=== PATIENT | female | born 1995 | race Caucasian/White ===

== ENCOUNTER 2016-05-28 11:36 | Emergency (ER) | payer OTHER ==
--- NOTE | 2016-05-28 13:19 | ED CLINICAL REPORT ---
Clinical Report - Physicians/Mid Levels [facility] [address] [place] [address] 05/28/2016 11:37 Patient: MARVA CARCAMO Time Seen: 12:17 May 28 2016. Arrived- By private vehicle. Historian- patient. CPT: ER phys charges level 3 plus (#006339). Abscess complicated I&D (#[id number]). HISTORY OF PRESENT ILLNESS Chief Complaint: LESION. 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 It is described as painful. It has been located on the left forearm. A cause has been identified (IVDA heroin). Similar symptoms previously: Recent medical care: Not recently seen/assessed. REVIEW OF SYSTEMS The patient has had fever. No chills, sore throat, cough, difficulty breathing or hoarseness. No enlarged lymph nodes, headache, chest pain, abdominal pain or nausea. No diarrhea, difficulty with urination or joint pain. All systems otherwise negative, except as recorded above. PAST HISTORY Abscess Check. Abscess. Fever. Cellulitis. Pneumonia. Febrile Illness. Ear Infection. Strep Throat. Abrasion(s). Tetanus Status. Immunizations. --11:55 Janae Magana R.N. ADDITIONAL SURGERIES: I & D of Abcesses. Medications: None. Allergies: No Known Drug Allergy. SOCIAL HISTORY Never smoker. History of drug use: heroin, methamphetamines. ADDITIONAL NOTES The nursing notes have been reviewed. PHYSICAL EXAM Vital Signs: 05/28/2016 11:50 BP: 113/80. HR: 109. RR: 18. O2 saturation: 100%. Temp: 98.4 F. Appearance: Alert. Patient in mild distress. Eyes: Pupils equal, round and reactive to light. Conjunctivae and eyelids normal. ENT: Ears normal. Nose normal. Pharynx normal. Neck: Neck supple. CVS: Normal heart rate and rhythm. Heart sounds normal. No cardiac murmur. Respiratory: No respiratory distress. Breath sounds normal. Chest nontender. Abdomen: Nontender. Skin: Single medium abscess with fluctuance, pointing and cellulitis to left forearm. Extremities: (see above). Neuro: Oriented X 3. No motor deficit. No sensory deficit. LABS, X-RAYS, AND EKG Laboratory Tests: Culture, Wound Deep: (AINSLEY: 05/28/2016 13:30) ( MsgRcvd 05/29/2016 10:28) IP SPECIMEN DESCRIPTION: SWAB Test Result Flag Units (Reference) GRAM STAIN, WOUND, DEEP GRAM POSITIVE COCCI: MODERATE WHITE BLOOD CELLS: MODERATE CULTURE, WOUND DEEP, AEROBIC DATE: 05/29/16 PRELIM REPORT: PRELIMINARY REPORT #1 -- STAAUR GROWTH: HEAVY GROWTH ID AND SENS TO FOLLOW: SENSITIVITY TO FOLLOW . PROGRESS AND PROCEDURES Incision & Drainage of Abscess: The risks of the procedure, benefits and alternatives were explained. Consent was obtained. Local anesthesia provided using 2% lidocaine with bicarb. Skin cleansed with Betadine. The abscess was incised with a #11 surgical blade. A large amount of pus was drained. Cavity was irrigated with saline and packed with gauze. Sample obtained for cultures and gram stain. A dressing was applied. Estimated blood loss: 2 mL. Patient/family counseled. Disposition: Discharged. Condition: stable and improved. CLINICAL IMPRESSION Single deep abscess to the left upper extremity with incision and drainage. INSTRUCTIONS Protect wound and keep wound area clean. Leave dressing in place until seen in follow-up. Keep wounds dry. Warnings: Further evaluation is necessary. GENERAL WARNINGS: Return or contact your physician immediately if your condition worsens or changes unexpectedly, if not improving as expected, or if other problems arise. Prescription Medications: Bactrim DS 800 mg / 160 mg: Take 1 tablet orally every 12 hours for 7 days. Dispense fourteen (14). No refills. Substitution is permissible. OTC Medications: Acetaminophen (available over the counter): take according to label instructions. Follow-up: Follow up with your doctor in two days. Call for an appointment. Understanding of the discharge instructions verbalized by patient. Follow-up with: [facility], , , [address], , [place], [id number] Follow up in two days. Call for the next available appointment. (Electronically signed by George Vincent MD 05/29/2016 13:13)
--- NOTE | 2016-05-28 13:19 | ED NURSING NOTES ---
Clinical Report - Nurs[facility] [address] [place] [address] 05/28/2016 11:37 Patient: MARVA CARCAMO TRIAGE Triage time 11:50 May 28 2016. Acuity: LEVEL 4. Chief Complaint: BOIL and TENDER AREA. Alert. No acute distress. --11:55 Janae Magana R.N. 11:50 05/28/16. BP: 113/80. HR: 109. RR: 18. O2 saturation: 100%. Temp: 98.4 F. Pain level now 5/10. --11:55 Janae Magana R.N. Weight: 58.9 kg stated. Height/Length: 60 inches Per Patient. BMI: 25.4. Growth Chart Percentile: Weight: 53.3%. Height/Length: 4.6%. --11:50 Janae Magana R.N. Medications None. --11:55 Janae Magana R.N. Allergies No Known Drug Allergy. --11:54 Janae Magana R.N. Medication/allergy information source: the patient. --11:55 Janae Magana R.N. History Arrived by private vehicle. Historian: patient. Primary physician (was Iliana Zavala). ( Left Forearm Infection from shooting Heroin.). Location - left forearm. Onset. (3 days). 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 (not today). PAST MEDICAL HX: Immunizations: up-to-date. Last normal menstrual period was 2 weeks ago. No contraception. Denies current . SOCIAL HX: Never smoker. History of IV drug use: heroin, methamphetamines. No alcohol use. No infectious disease exposure. FALL RISK ASSESSMENT: Fall risk assessment completed. No fall risk identified. NUTRITIONAL RISK ASSESSMENT: The nutritional risk assessment revealed no deficiencies. FUNCTIONAL ASSESSMENT: Functional assessment: no impairments noted. LEARNING NEEDS ASSESSMENT: The learning needs assessment revealed no barriers. SKIN INTEGRITY ASSESSMENT: Skin integrity risk assessment completed. No skin integrity risk identified. --11:55 Janae Magana R.N. PROBLEMS: Abscess Check. Abscess. Fever. Cellulitis. Pneumonia. Febrile Illness. Ear Infection. Strep Throat. Abrasion(s). Tetanus Status. Immunizations. --11:55 Janae Magana R.N. ADDITIONAL SURGERIES: I & D of Abcesses. --11:55 Janae Magana R.N. Interventions ID band on patient. To room. --11:55 Janae Magana R.N. PHYSICAL ASSESSMENT Ambulatory to room. GENERAL / NEURO / PSYCH: The patient does not appear to be in acute distress. Oriented X 4. CVS: Capillary refill less than 2 seconds. SKIN: Single wound on the left forearm- raised soft abcess. Skin tenderness present. --12:11 Janae Magana R.N. NURSING PROGRESS NOTES Patient ready for evaluation- ED physician notified. --11:56 Janae Magana R.N. 13:25 05/28/16. Applied clean bulky dressing consisting of 4x4 gauze. Secured with kerlix. --13:41 Charley Che 13:32 05/28/16. Patient ID band checked for patient name and birthdate: patient confirmed. Wound to left upper arm swabbed for culture; collected by doctor. Specimen labeled in the presence of the patient. --13:42 Charley Che. DISPOSITION / DISCHARGE 13:36 05/28/16. Departure time: 13:36 May 28 2016. Condition at departure: improved. The goals identified in the patient's plan of care were met. No learning barriers present. Discharge instructions provided and reviewed with the patient. Reviewed warnings (Patient verbalized awareness of warning s/sx listed in dc paperwork.). Reviewed medication(s). Prescription(s) given to the patient (Bactrim, Tylenol). Treatments reviewed. Reviewed referral to a primary care physician for followup. Patient verbalized understanding. Written instructions provided in [place]. The patient was discharged by the physician. She was discharged home and accompanied by junior high school teacher. She left the Emergency Department ambulatory and via private vehicle. Skinner Pelts driving. FALL RISK ASSESSMENT: Fall risk assessment completed. No fall risk identified. --13:36 Charley Che 13:35 05/28/16. BP: 127/82. HR: 105. RR: 15. O2 saturation: 100% on room air. Temp: 98.3 F. Pain level now: 06/27. --13:36 Charley Che. Locked/Released at 05/28/2016 13:57 by Charley Che,
--- NOTE | 2016-05-28 13:19 | ED NURSING NOTES ---
Clinical Report - Nurses [facility] [address] [place] [address] 05/28/2016 11:37 Patient: MARVA CARCAMO TRIAGE Triage time 11:50 May 28 2016. Acuity: LEVEL 4. Chief Complaint: BOIL and TENDER AREA. Alert. No acute distress. --11:55 Janae Magana R.N. 11:50 05/28/16. BP: 113/80. HR: 109. RR: 18. O2 saturation: 100%. Temp: 98.4 F. Pain level now 5/10. --11:55 Janae Magana R.N. Weight: 58.9 kg stated. Height/Length: 60 inches Per Patient. BMI: 25.4. Growth Chart Percentile: Weight: 53.3%. Height/Length: 4.6%. --11:50 Janae Magana R.N. Medications None. --11:55 Janae Magana R.N. Allergies No Known Drug Allergy. --11:54 Janae Magana R.N. Medication/allergy information source: the patient. --11:55 Janae Magana R.N. History Arrived by private vehicle. Historian: patient. Primary physician (was Iliana Zavala). ( Left Forearm Infection from shooting Heroin.). Location - left forearm. Onset. (3 days). 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 (not today). PAST MEDICAL HX: Immunizations: up-to-date. Last normal menstrual period was 2 weeks ago. No contraception. Denies current . SOCIAL HX: Never smoker. History of IV drug use: heroin, methamphetamines. No alcohol use. No infectious disease exposure. FALL RISK ASSESSMENT: Fall risk assessment completed. No fall risk identified. NUTRITIONAL RISK ASSESSMENT: The nutritional risk assessment revealed no deficiencies. FUNCTIONAL ASSESSMENT: Functional assessment: no impairments noted. LEARNING NEEDS ASSESSMENT: The learning needs assessment revealed no barriers. SKIN INTEGRITY ASSESSMENT: Skin integrity risk assessment completed. No skin integrity risk identified. --11:55 Janae Magana R.N. PROBLEMS: Abscess Check. Abscess. Fever. Cellulitis. Pneumonia. Febrile Illness. Ear Infection. Strep Throat. Abrasion(s). Tetanus Status. Immunizations. --11:55 Janae Magana R.N. ADDITIONAL SURGERIES: I & D of Abcesses. --11:55 Janae Magana R.N. Interventions ID band on patient. To room. --11:55 Janae Magana R.N. PHYSICAL ASSESSMENT Ambulatory to room. GENERAL / NEURO / PSYCH: The patient does not appear to be in acute distress. Oriented X 4. CVS: Capillary refill less than 2 seconds. SKIN: Single wound on the left forearm- raised soft abcess. Skin tenderness present. --12:11 Janae Magana R.N. NURSING PROGRESS NOTES Patient ready for evaluation- ED physician notified. --11:56 Janae Magana R.N. 13:25 05/28/16. Applied clean bulky dressing consisting of 4x4 gauze. Secured with kerlix. --13:41 Charley Che 13:32 05/28/16. Patient ID band checked for patient name and birthdate: patient confirmed. Wound to left upper arm swabbed for culture; collected by doctor. Specimen labeled in the presence of the patient. --13:42 Charley Che. DISPOSITION / DISCHARGE 13:36 05/28/16. Departure time: 13:36 May 28 2016. Condition at departure: improved. The goals identified in the patient's plan of care were met. No learning barriers present. Discharge instructions provided and reviewed with the patient. Reviewed warnings (Patient verbalized awareness of warning s/sx listed in dc paperwork.). Reviewed medication(s). Prescription(s) given to the patient (Bactrim, Tylenol). Treatments reviewed. Reviewed referral to a primary care physician for followup. Patient verbalized understanding. Written instructions provided in Bengali. The patient was discharged by the physician. She was discharged home and accompanied by solar thermal technician. She left the Emergency Department ambulatory and via private vehicle. Telephone Installer driving. FALL RISK ASSESSMENT: Fall risk assessment completed. No fall risk identified. --13:36 Charley Che 13:35 05/28/16. BP: 127/82. HR: 105. RR: 15. O2 saturation: 100% on room air. Temp: 98.3 F. Pain level now: 06/27. --13:36 Charley Che. Locked/Released at 05/28/2016 13:57 by Charley Che,
--- NOTE | 2016-05-28 13:19 | ED CLINICAL REPORT ---
Clinical Report - Physicians/Mid Levels [facility] [address] [place] [address] 05/28/2016 11:37 Patient: MARVA CARCAMO Time Seen: 12:17 May 28 2016. Arrived- By private vehicle. Historian- patient. CPT: ER phys charges level 3 plus (#[id number]). Abscess complicated I&D (#708596). HISTORY OF PRESENT ILLNESS Chief Complaint: LESION. 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 It is described as painful. It has been located on the left forearm. A cause has been identified (IVDA heroin). Similar symptoms previously: Recent medical care: Not recently seen/assessed. REVIEW OF SYSTEMS The patient has had fever. No chills, sore throat, cough, difficulty breathing or hoarseness. No enlarged lymph nodes, headache, chest pain, abdominal pain or nausea. No diarrhea, difficulty with urination or joint pain. All systems otherwise negative, except as recorded above. PAST HISTORY Abscess Check. Abscess. Fever. Cellulitis. Pneumonia. Febrile Illness. Ear Infection. Strep Throat. Abrasion(s). Tetanus Status. Immunizations. --11:55 Janae Magana R.N. ADDITIONAL SURGERIES: I & D of Abcesses. Medications: None. Allergies: No Known Drug Allergy. SOCIAL HISTORY Never smoker. History of drug use: heroin, methamphetamines. ADDITIONAL NOTES The nursing notes have been reviewed. PHYSICAL EXAM Vital Signs: 05/28/2016 11:50 BP: 113/80. HR: 109. RR: 18. O2 saturation: 100%. Temp: 98.4 F. Appearance: Alert. Patient in mild distress. Eyes: Pupils equal, round and reactive to light. Conjunctivae and eyelids normal. ENT: Ears normal. Nose normal. Pharynx normal. Neck: Neck supple. CVS: Normal heart rate and rhythm. Heart sounds normal. No cardiac murmur. Respiratory: No respiratory distress. Breath sounds normal. Chest nontender. Abdomen: Nontender. Skin: Single medium abscess with fluctuance, pointing and cellulitis to left forearm. Extremities: (see above). Neuro: Oriented X 3. No motor deficit. No sensory deficit. LABS, X-RAYS, AND EKG Laboratory Tests: Culture, Wound Deep: (AINSLEY: 05/28/2016 13:30) ( MsgRcvd 05/29/2016 10:28) IP SPECIMEN DESCRIPTION: SWAB Test Result Flag Units (Reference) GRAM STAIN, WOUND, DEEP GRAM POSITIVE COCCI: MODERATE WHITE BLOOD CELLS: MODERATE CULTURE, WOUND DEEP, AEROBIC DATE: 05/29/16 PRELIM REPORT: PRELIMINARY REPORT #1 -- STAAUR GROWTH: HEAVY GROWTH ID AND SENS TO FOLLOW: SENSITIVITY TO FOLLOW . PROGRESS AND PROCEDURES Incision & Drainage of Abscess: The risks of the procedure, benefits and alternatives were explained. Consent was obtained. Local anesthesia provided using 2% lidocaine with bicarb. Skin cleansed with Betadine. The abscess was incised with a #11 surgical blade. A large amount of pus was drained. Cavity was irrigated with saline and packed with gauze. Sample obtained for cultures and gram stain. A dressing was applied. Estimated blood loss: 2 mL. Patient/family counseled. Disposition: Discharged. Condition: stable and improved. CLINICAL IMPRESSION Single deep abscess to the left upper extremity with incision and drainage. INSTRUCTIONS Protect wound and keep wound area clean. Leave dressing in place until seen in follow-up. Keep wounds dry. Warnings: Further evaluation is necessary. GENERAL WARNINGS: Return or contact your physician immediately if your condition worsens or changes unexpectedly, if not improving as expected, or if other problems arise. Prescription Medications: Bactrim DS 800 mg / 160 mg: Take 1 tablet orally every 12 hours for 7 days. Dispense fourteen (14). No refills. Substitution is permissible. OTC Medications: Acetaminophen (available over the counter): take according to label instructions. Follow-up: Follow up with your doctor in two days. Call for an appointment. Understanding of the discharge instructions verbalized by patient. Follow-up with: [facility], , , [address], , [place], [id number] Follow up in two days. Call for the next available appointment. (Electronically signed by George Vincent MD 05/29/2016 13:13)
--- NOTE | 2016-05-29 13:13 | ED DISCHARGE INSTRUCTIONS ---
Patient: MARVA CARCAMO General Instructions [facility] VisitID: [id number] [address] [place] [address] 20y, F Registration Date/Time: 05/28/2016 Single deep abscess to the left upper extremity with incision and drainage. INSTRUCTIONS Protect wound and keep wound area clean. Leave dressing in place until seen in follow-up. Keep wounds dry. Warnings: Further evaluation is necessary. GENERAL WARNINGS: Return or contact your physician immediately if your condition worsens or changes unexpectedly, if not improving as expected, or if other problems arise. Prescription Medications: Bactrim DS 800 mg / 160 mg: Take 1 tablet orally every 12 hours for 7 days. Dispense fourteen (14). No refills. Substitution is permissible. OTC Medications: Acetaminophen (available over the counter): take according to label instructions. Follow-up: Follow up with your doctor in two days. Call for an appointment. Understanding of the discharge instructions verbalized by patient. Follow-up with: [facility], , , [address], , [place], [id number] Follow up in two days. Call for the next available appointment. ADDITIONAL INFORMATION Abscess [Incision & Drainage] An abscess (sometimes called a boil) occurs when bacteria get trapped under the skin and begin to grow. Pus forms inside the abscess as the body responds to the bacteria. An abscess can occur with an insect bite, ingrown hair, blocked oil gland, pimple, cyst, or puncture wound. Treatment of your abscess has required an incision to drain the pus. If the abscess pocket was large, a gauze packing may have been inserted. This will need to be removed and possibly replaced on your next visit. Antibiotics are not required in the treatment of a simple abscess, unless the infection is spreading into the skin around the wound (known as cellulitis). Healing of the wound will take about one to two weeks depending on the size of the abscess. Healthy tissue will grow from the bottom and sides of the opening until it seals over. Home Care: The wound may drain for the first two days. Cover the wound with a clean dry dressing. If the dressing becomes soaked with blood or pus, change it. If a gauze packing was placed inside the abscess cavity, you may be advised to remove it yourself. You may do this in the shower. Once the packing is removed, you should wash the area in the shower or bath 3 to 4 times a day, until the skin opening has closed. If you were prescribed antibiotics, take them as directed until they are all gone. You may use acetaminophen (Tylenol) or ibuprofen (Motrin, Advil) to control pain, unless another pain medicine was prescribed. [ NOTE: If you have liver disease or ever had a stomach ulcer, talk with your doctor before using these medicines.] Follow Up with your doctor as advised by our staff. If a gauze packing was inserted in your wound, it should be removed in 1-2 days. Check your wound every day for the signs of worsening infection listed below. Get Prompt Medical Attention if any of the following occur: Increasing redness or swelling Red streaks in the skin leading away from the wound Increasing local pain or swelling Continued pus draining from the wound two days after treatment Fever of 100.4F (38C) or higher, or as directed by your healthcare provider You have been given the following additional information: Abscess, Incision And Drainage (Electronically signed by George Vincent MD 05/29/2016 13:13)
--- NOTE | 2016-05-29 13:13 | ED ORDER SUMMARY ---
..... Patient: MARVA CARCAMO OrderSheet [facility] VisitID: [id number] [address] [place] [address] 20y, F Registration Date/Time: 05/28/2016 ORDER SHEET Weight: 58.9 kg (stated) Allergies: No Known Drug Allergy GENERAL ORDERS: Culture, Wound Deep (Arm) (swab) Urgent (13:21 05/28/2016 Maggy GRUBER) (k 13:24 [facility]) (13:35 [facility]) MEDICATION ORDERS: IV FLUIDS: ORDER SHEET NOTES: [Electronically signed by Charley Che (13:57 05/28/2016)] [Electronically signed by George Vincent MD (13:13 05/29/2016)] [Electronically locked/signed by Charley Che (13:57 05/28/2016)]
--- NOTE | 2016-05-29 13:13 | ED MED RECONCILIATION SUMMARY ---
Patient: MARVA CARCAMO Medication Reconciliation Report [facility] VisitID: [id number] [place] [address] 20y, F Registration Date/Time: 05/28/2016 Weight: 58.9 kg Height/Length: 60 in. BMI: 25.4 ALLERGIES: No Known Drug Allergy The patient's Home Medications are listed below: NONE. The source(s) of the original Home Medication information: patient The following Medications were given to the patient in the Emergency Department: None. The following Medications were prescribed to the patient: Acetaminophen (available over the counter): take according to label instructions. -- George Vincent MD Bactrim DS 800 mg / 160 mg: Take 1 tablet orally every 12 hours for 7 days. Dispense fourteen (14). No refills. Substitution is permissible. -- George Vincent MD
--- NOTE | 2016-05-29 13:13 | ED MAR SUMMARY ---
..... Medication Administration Record [facility] [address] [place], [place] [id number] Patient: MARVA CARCAMO Visit ID: [id number] 20y, F Weight: 58.9 kg Height/Length: 60 in BMI: 25.4 ALLERGIES: No Known Drug Allergy
--- NOTE | 2016-05-29 13:13 | ED MAR SUMMARY ---
..... Medication Administration Record [facility] [address] [place], [place] [id number] Patient: MARVA CARCAMO Visit ID: [id number] 20y, F Weight: 58.9 kg Height/Length: 60 in BMI: 25.4 ALLERGIES: No Known Drug Allergy
--- NOTE | 2016-05-29 13:13 | ED MED RECONCILIATION SUMMARY ---
Patient: MARVA CARCAMO Medication Reconciliation Report [facility] VisitID: [id number] [place] [address] 20y, F Registration Date/Time: 05/28/2016 Weight: 58.9 kg Height/Length: 60 in. BMI: 25.4 ALLERGIES: No Known Drug Allergy The patient's Home Medications are listed below: NONE. The source(s) of the original Home Medication information: patient The following Medications were given to the patient in the Emergency Department: None. The following Medications were prescribed to the patient: Acetaminophen (available over the counter): take according to label instructions. -- George Vincent MD Bactrim DS 800 mg / 160 mg: Take 1 tablet orally every 12 hours for 7 days. Dispense fourteen (14). No refills. Substitution is permissible. -- George Vincent MD
--- NOTE | 2016-05-29 13:13 | ED ORDER SUMMARY ---
..... Patient: MARVA CARCAMO OrderSheet [facility] VisitID: [id number] [address] [place] [address] 20y, F Registration Date/Time: 05/28/2016 ORDER SHEET Weight: 58.9 kg (stated) Allergies: No Known Drug Allergy GENERAL ORDERS: Culture, Wound Deep (Arm) (swab) Urgent (13:21 05/28/2016 Maggy GRUBER) (k 13:24 [facility]) (13:35 [facility]) MEDICATION ORDERS: IV FLUIDS: ORDER SHEET NOTES: [Electronically signed by Charlye Che (13:57 05/28/2016)] [Electronically signed by George Vincent MD (13:13 05/29/2016)] [Electronically locked/signed by Charley Che (13:57 05/28/2016)]
--- NOTE | 2016-05-29 13:13 | ED DISCHARGE INSTRUCTIONS ---
Patient: MARVA CARCAMO General Instructions [facility] VisitID: [id number] [address] [place] [address] 20y, F Registration Date/Time: 05/28/2016 Single deep abscess to the left upper extremity with incision and drainage. INSTRUCTIONS Protect wound and keep wound area clean. Leave dressing in place until seen in follow-up. Keep wounds dry. Warnings: Further evaluation is necessary. GENERAL WARNINGS: Return or contact your physician immediately if your condition worsens or changes unexpectedly, if not improving as expected, or if other problems arise. Prescription Medications: Bactrim DS 800 mg / 160 mg: Take 1 tablet orally every 12 hours for 7 days. Dispense fourteen (14). No refills. Substitution is permissible. OTC Medications: Acetaminophen (available over the counter): take according to label instructions. Follow-up: Follow up with your doctor in two days. Call for an appointment. Understanding of the discharge instructions verbalized by patient. Follow-up with: [facility], , , [address], , [place], [id number] Follow up in two days. Call for the next available appointment. ADDITIONAL INFORMATION Abscess [Incision & Drainage] An abscess (sometimes called a boil) occurs when bacteria get trapped under the skin and begin to grow. Pus forms inside the abscess as the body responds to the bacteria. An abscess can occur with an insect bite, ingrown hair, blocked oil gland, pimple, cyst, or puncture wound. Treatment of your abscess has required an incision to drain the pus. If the abscess pocket was large, a gauze packing may have been inserted. This will need to be removed and possibly replaced on your next visit. Antibiotics are not required in the treatment of a simple abscess, unless the infection is spreading into the skin around the wound (known as cellulitis). Healing of the wound will take about one to two weeks depending on the size of the abscess. Healthy tissue will grow from the bottom and sides of the opening until it seals over. Home Care: The wound may drain for the first two days. Cover the wound with a clean dry dressing. If the dressing becomes soaked with blood or pus, change it. If a gauze packing was placed inside the abscess cavity, you may be advised to remove it yourself. You may do this in the shower. Once the packing is removed, you should wash the area in the shower or bath 3 to 4 times a day, until the skin opening has closed. If you were prescribed antibiotics, take them as directed until they are all gone. You may use acetaminophen (Tylenol) or ibuprofen (Motrin, Advil) to control pain, unless another pain medicine was prescribed. [ NOTE: If you have liver disease or ever had a stomach ulcer, talk with your doctor before using these medicines.] Follow Up with your doctor as advised by our staff. If a gauze packing was inserted in your wound, it should be removed in 1-2 days. Check your wound every day for the signs of worsening infection listed below. Get Prompt Medical Attention if any of the following occur: Increasing redness or swelling Red streaks in the skin leading away from the wound Increasing local pain or swelling Continued pus draining from the wound two days after treatment Fever of 100.4F (38C) or higher, or as directed by your healthcare provider You have been given the following additional information: Abscess, Incision And Drainage (Electronically signed by George Vincent MD 05/29/2016 13:13)
== END 2016-05-28 13:36 | disposition home or self-care (01) ==
LOC: ED SRH 11:36
DX: L02.414 Cutaneous abscess of left upper limb (principal)
CPT/HCPCS: 90070; 90131; 90309; 90470; 91672

== ENCOUNTER 2016-06-01 13:07 | Emergency (ER) | payer OTHER ==
--- NOTE | 2016-06-01 13:36 | ED CLINICAL REPORT ---
Clinical Report - Physicians/Mid Levels [facility] [address] [place] [address] 06/01/2016 13:07 Patient: MARVA CARCAMO Arrived- By private vehicle. Historian- patient. HISTORY OF PRESENT ILLNESS Chief Complaint: (wound recheck). This started past several days and is still present but is improving. It was gradual in onset and has been constant but is not gone now. Not itchy, painful or burning. It has been located on the left forearm. A possible cause has been identified (IV drug use). (Taking bactrim as prescribed. No concerns). Similar symptoms previously: Recent medical care: The patient was seen recently by a health care provider. REVIEW OF SYSTEMS No fever, chills, difficulty breathing or abdominal pain. No chest pain. All systems otherwise negative, except as recorded above. PAST HISTORY See nurses notes. Tetanus immunization status is up-to-date. SOCIAL HISTORY Smoker- current status unknown. History of drug use heroin. No alcohol use. Is a local resident. FAMILY HISTORY Negative. ADDITIONAL NOTES The nursing notes have been reviewed. PHYSICAL EXAM Vital Signs: 06/01/2016 13:17 BP: 127/76. HR: 105. RR: 18. O2 saturation: 99%. Temp: 98.7 F. Pain level now: 2/10. Blood pressure normal. Oxygen saturation normal. Appearance: Alert. Oriented X3. No acute distress. CVS: Normal heart rate and rhythm. Heart sounds normal. Respiratory: No respiratory distress. Breath sounds normal. Chest nontender. Abdomen: Nontender. No organomegaly. Skin: Skin warm and dry. Normal skin color. No rash. Normal skin turgor. (small area of abscess with apparent prior drainage with packinginserted. Moderate amount of packing noted to be in the wound. Wound measures approximately 2 cm in largest diameter. Over lying erythema or hyperemia in the skin. Area is mildly tender to palpation and appropriate forpatient'sprior abscess. Purulent material noted to be on the packing. He was removed without significant discomfort. No active bleeding. Wound is not malodorous. Patient is neurovascularly intact distally. Compartments are soft.). Extremities: Normal external inspection. Extremities nontender. PROGRESS AND PROCEDURES Abscess Recheck: The abscess is located (left volar forearm). Examination of abscess reveals normal healing. No erythema. Mild tenderness present. Course of Care: the patient is a pleasant 20-year-old female with recent diagnosis of abscess that was drained here in the emergency department. Patient is here for wound check of recently drained abscess. Patient has no systemic symptoms at this time. Patient has been taking antiemetics as directed. Wound appears to be healing well. Wound appears to be Deep however improving in nature and requires repacking. Patient instructed to follow up with her doctor in approximately 24-48 hours. No evidence of worsening infection on examination. Patient is neurovascularly intact. Patient was agreeable to repacking of the wound after discussing the risks and benefits verbally. All questions answered. Patient was agreeable to treatment plan. Patient's wound was repacked without competitions. Patient tolerated procedure well. Discussed with patient workup, diagnosis, home care, follow-up, and return percussion speared all questions answered. The patient expressed understanding of these instructions and was agreeable to them. on separate note, had discussion with patient in regards to recreational drug use. Expressed my concern for her health and safety. Patient expressed understanding of these instructions and was agreeable to seeking treatment. Patient states that she will be considering methadone and has an appointment in the next few days. Disposition: Discharged. Condition: good. CLINICAL IMPRESSION 06/01/2016 13:17 BP: 127/76. HR: 105. RR: 18. O2 saturation: 99%. Temp: 98.7 F. Pain level now: 2/10. Blood pressure normal. Oxygen saturation normal. Wound check (abscess left upper extremity). INSTRUCTIONS (Follow up with your primary care doctor in 1 - 2 days for wound check.). Warnings: GENERAL WARNINGS: Return or contact your physician immediately if your condition worsens or changes unexpectedly, if not improving as expected, or if other problems arise. Specifically return if pain, vomiting, bleeding, breathing difficulty or fever. redness, swelling, or other concerns. Your Current Medications: CONTINUE TAKING THE FOLLOWING MEDICATIONS: Bactrim DS Oral : 1 tablet 2x a day. Follow-up: Return to the emergency department as needed. Follow up with your doctor. Reason for referral: 1 - 2 days for wound check. Summary of care provided to patient via paper. Screening today revealed the patient's blood pressure to be in the normal range. The patient should follow up with a primary care provider for blood pressure management. Understanding of the discharge instructions verbalized by patient. (Electronically signed by Lanre Jung Dr. 06/03/2016 15:24)
--- NOTE | 2016-06-01 13:36 | ED NURSING NOTES ---
Clinical Report - Nurses [facility] [address] [place] [address] 06/01/2016 13:07 Patient: MARVA CARCAMO TRIAGE Triage time 13:17. Acuity: LEVEL 3. Chief Complaint: RECHECK OF WOUND. Alert. No acute distress. --13:24 Ketty Perez R.N. 13:17 06/01/16. BP: 127/76. HR: 105. RR: 18. O2 saturation: 99%. Temp: 98.7 F. Pain level now: 05/30. --13:24 Ketty Perez R.N. 13:17 06/01/16. BP: 127/76. HR: 105. RR: 18. O2 saturation: 99%. Temp: 98.7 F. Pain level now: 05/30. --13:24 Ketty Perez R.N. Weight: 58.9 kg. Height/Length: 66 inches. BMI: 21. Growth Chart Percentile: Weight: 53.3%. Height/Length: 74.6%. --13:21 Ketty Perez R.N. Medications Bactrim DS Oral 1 tablet, 2x a day. --13:20 Ketty Perez R.N. Medication/allergy information source: the patient. --13:24 Ketty Perez R.N. Allergies No Known Drug Allergy. --13:19 Ketty Perez R.N. History Arrived by private vehicle. Historian: patient. Primary physician (TANA). Location: left forearm. Has had no swelling. Previous treatment: Previously seen in this ED four days ago. Incision and drainage of abscess performed. Prescription given. (BACTRIM). PAST MEDICAL HX: Tetanus status: unknown. Last normal menstrual period was 2 weeks ago. SOCIAL HX: Never smoker. History of drug use: heroin. Recently used drugs yesterday. FALL RISK ASSESSMENT: Fall risk assessment completed. No fall risk identified. NUTRITIONAL RISK ASSESSMENT: The nutritional risk assessment revealed no deficiencies. FUNCTIONAL ASSESSMENT: Functional assessment: no impairments noted. LEARNING NEEDS ASSESSMENT: The learning needs assessment revealed no barriers. SKIN INTEGRITY ASSESSMENT: Skin integrity risk assessment completed. No skin integrity risk identified. --13:24 Ketty Perez R.N. PROBLEMS: Lifestyle / Substance Problems. Abscess Check. Abscess. Fever. Cellulitis. Pneumonia. Febrile Illness. Ear Infection. Strep Throat. Abrasion(s). Tetanus Status. --13:21 Ketty Perez R.N. ADDITIONAL SURGERIES: I & D of Abcesses. --13:21 Ketty Perez R.N. Interventions ID band on patient. To room. --13:24 Ketty Perez R.N. PHYSICAL ASSESSMENT Ambulatory to room. GENERAL / NEURO / PSYCH: Alert. Oriented X 4. Patient's nutrition appears within normal limits. Appears anxious. EXTREMITIES: Limited ROM present. Capillary refill is less than 2 seconds in the extremities. SKIN: Skin is warm and dry. Healing wound. No signs or symptoms of infection. --13:24 Ketty Perez R.N. NURSING PROGRESS NOTES Extremity elevated. Two patient identifiers checked. Call light placed in reach. Side rails up x 1. Bed placed in lowest position. Brakes of bed on. Patient ready for evaluation. --13:25 Ketty Perez R.N. 13:31 06/01/16. Wound cleansed with sterile saline. Applied clean bulky dressing. Secured with kerlix (PACKING REINSERTED BY THE PROVIDER.). --13:31 Ketty Perez R.N. DISPOSITION / DISCHARGE 13:35. Condition at departure: improved. ( MRSA pamplet given to the patient and oven laborer. Discussed good handwashing and not sharing any articles.). No learning barriers present. Discharge instructions provided and reviewed with oven laborer and the patient. Reviewed wound care instructions. Patient verbalized understanding. Written instructions provided in Uzbek. The patient was discharged home and accompanied by oven laborer. She left the Emergency Department ambulatory and via private vehicle. Party Plan Sales Host/Hostess driving. Medication list reviewed and validated. --15:09 Ketty Perez R.N. 13:17 06/01/16. BP: 127/76. HR: 105. RR: 18. O2 saturation: 99%. Temp: 98.7 F. Pain level now: 05/30. --15:09 Perez, Ketty, R.N. Locked/Released at 06/01/2016 15:10 by Ketty Perez R.N.
--- NOTE | 2016-06-01 13:36 | ED NURSING NOTES ---
Clinical Report - Nurses [facility] [address] [place] [address] 06/01/2016 13:07 Patient: MARVA CARCAMO TRIAGE Triage time 13:17. Acuity: LEVEL 3. Chief Complaint: RECHECK OF WOUND. Alert. No acute distress. --13:24 Ketty Perez R.N. 13:17 06/01/16. BP: 127/76. HR: 105. RR: 18. O2 saturation: 99%. Temp: 98.7 F. Pain level now: 05/30. --13:24 Ketty Perez R.N. 13:17 06/01/16. BP: 127/76. HR: 105. RR: 18. O2 saturation: 99%. Temp: 98.7 F. Pain level now: 05/30. --13:24 Ketty Perez R.N. Weight: 58.9 kg. Height/Length: 66 inches. BMI: 21. Growth Chart Percentile: Weight: 53.3%. Height/Length: 74.6%. --13:21 Ketty Perez R.N. Medications Bactrim DS Oral 1 tablet, 2x a day. --13:20 Ketty Perez R.N. Medication/allergy information source: the patient. --13:24 Ketty Perez R.N. Allergies No Known Drug Allergy. --13:19 Ketty Perez R.N. History Arrived by private vehicle. Historian: patient. Primary physician (TANA). Location: left forearm. Has had no swelling. Previous treatment: Previously seen in this ED four days ago. Incision and drainage of abscess performed. Prescription given. (BACTRIM). PAST MEDICAL HX: Tetanus status: unknown. Last normal menstrual period was 2 weeks ago. SOCIAL HX: Never smoker. History of drug use: heroin. Recently used drugs yesterday. FALL RISK ASSESSMENT: Fall risk assessment completed. No fall risk identified. NUTRITIONAL RISK ASSESSMENT: The nutritional risk assessment revealed no deficiencies. FUNCTIONAL ASSESSMENT: Functional assessment: no impairments noted. LEARNING NEEDS ASSESSMENT: The learning needs assessment revealed no barriers. SKIN INTEGRITY ASSESSMENT: Skin integrity risk assessment completed. No skin integrity risk identified. --13:24 Ketty Perez R.N. PROBLEMS: Lifestyle / Substance Problems. Abscess Check. Abscess. Fever. Cellulitis. Pneumonia. Febrile Illness. Ear Infection. Strep Throat. Abrasion(s). Tetanus Status. --13:21 Ketty Perez R.N. ADDITIONAL SURGERIES: I & D of Abcesses. --13:21 Ketty Perez R.N. Interventions ID band on patient. To room. --13:24 Ketty Perez R.N. PHYSICAL ASSESSMENT Ambulatory to room. GENERAL / NEURO / PSYCH: Alert. Oriented X 4. Patient's nutrition appears within normal limits. Appears anxious. EXTREMITIES: Limited ROM present. Capillary refill is less than 2 seconds in the extremities. SKIN: Skin is warm and dry. Healing wound. No signs or symptoms of infection. --13:24 Ketty Perez R.N. NURSING PROGRESS NOTES Extremity elevated. Two patient identifiers checked. Call light placed in reach. Side rails up x 1. Bed placed in lowest position. Brakes of bed on. Patient ready for evaluation. --13:25 Ketty Perez R.N. 13:31 06/01/16. Wound cleansed with sterile saline. Applied clean bulky dressing. Secured with kerlix (PACKING REINSERTED BY THE PROVIDER.). --13:31 Ketty Perez R.N. DISPOSITION / DISCHARGE 13:35. Condition at departure: improved. ( MRSA pamplet given to the patient and personnel research psychologist. Discussed good handwashing and not sharing any articles.). No learning barriers present. Discharge instructions provided and reviewed with personnel research psychologist and the patient. Reviewed wound care instructions. Patient verbalized understanding. Written instructions provided in Botswanan. The patient was discharged home and accompanied by personnel research psychologist. She left the Emergency Department ambulatory and via private vehicle. [employer] Teacher driving. Medication list reviewed and validated. --15:09 Ketty Perez R.N. 13:17 06/01/16. BP: 127/76. HR: 105. RR: 18. O2 saturation: 99%. Temp: 98.7 F. Pain level now: 05/30. --15:09 Perez, Ketty, R.N. Locked/Released at 06/01/2016 15:10 by Ketty Perez R.N.
--- NOTE | 2016-06-03 15:24 | ED MED RECONCILIATION SUMMARY ---
Patient: MARVA CARCAMO Medication Reconciliation Report [facility] VisitID: [id number] [address] [place] [address] 20y, F Registration Date/Time: 06/01/2016 Weight: 58.9 kg Height/Length: 66 in. BMI: 21.0 ALLERGIES: No Known Drug Allergy The patient's Home Medications are listed below: CONTINUE TAKING THE FOLLOWING MEDICATIONS: Bactrim DS Oral 1 tablet, 2x a day The source(s) of the original Home Medication information: patient The following Medications were given to the patient in the Emergency Department: None. The following Medications were prescribed to the patient: None.
--- NOTE | 2016-06-03 15:24 | ED MED RECONCILIATION SUMMARY ---
Patient: MARVA CARCAMO Medication Reconciliation Report [facility] VisitID: [id number] [address] [place] [address] 20y, F Registration Date/Time: 06/01/2016 Weight: 58.9 kg Height/Length: 66 in. BMI: 21.0 ALLERGIES: No Known Drug Allergy The patient's Home Medications are listed below: CONTINUE TAKING THE FOLLOWING MEDICATIONS: Bactrim DS Oral 1 tablet, 2x a day The source(s) of the original Home Medication information: patient The following Medications were given to the patient in the Emergency Department: None. The following Medications were prescribed to the patient: None.
--- NOTE | 2016-06-03 15:24 | ED DISCHARGE INSTRUCTIONS ---
Patient: MARVA CARCAMO General Instructions [facility] VisitID: [id number] [address] [place] [address] 20y, F Registration Date/Time: 06/01/2016 06/01/2016 13:17 BP: 127/76. HR: 105. RR: 18. O2 saturation: 99%. Temp: 98.7 F. Pain level now: 05/30. Blood pressure normal. Oxygen saturation normal. Wound check (abscess left upper extremity). INSTRUCTIONS (Follow up with your primary care doctor in 1 - 2 days for wound check.). Warnings: GENERAL WARNINGS: Return or contact your physician immediately if your condition worsens or changes unexpectedly, if not improving as expected, or if other problems arise. Specifically return if pain, vomiting, bleeding, breathing difficulty or fever. redness, swelling, or other concerns. Your Current Medications: CONTINUE TAKING THE FOLLOWING MEDICATIONS: Bactrim DS Oral : 1 tablet 2x a day. Follow-up: Return to the emergency department as needed. Follow up with your doctor. Reason for referral: 1 - 2 days for wound check. Summary of care provided to patient via paper. Screening today revealed the patient's blood pressure to be in the normal range. The patient should follow up with a primary care provider for blood pressure management. Understanding of the discharge instructions verbalized by patient. (Electronically signed by Lanre Jung Dr. 06/03/2016 15:24)
--- NOTE | 2016-06-03 15:24 | ED MAR SUMMARY ---
..... Medication Administration Record Merged With [facility] [address] [place], [place] [id number] Patient: MARVA CARCAMO Visit ID: [id number] 20y, F Weight: 58.9 kg Height/Length: 66 in BMI: 21 ALLERGIES: No Known Drug Allergy
--- NOTE | 2016-06-03 15:24 | ED DISCHARGE INSTRUCTIONS ---
Patient: MARVA CARCAMO General Instructions [facility] VisitID: [id number] [address] [place] [address] 20y, F Registration Date/Time: 06/01/2016 06/01/2016 13:17 BP: 127/76. HR: 105. RR: 18. O2 saturation: 99%. Temp: 98.7 F. Pain level now: 05/30. Blood pressure normal. Oxygen saturation normal. Wound check (abscess left upper extremity). INSTRUCTIONS (Follow up with your primary care doctor in 1 - 2 days for wound check.). Warnings: GENERAL WARNINGS: Return or contact your physician immediately if your condition worsens or changes unexpectedly, if not improving as expected, or if other problems arise. Specifically return if pain, vomiting, bleeding, breathing difficulty or fever. redness, swelling, or other concerns. Your Current Medications: CONTINUE TAKING THE FOLLOWING MEDICATIONS: Bactrim DS Oral : 1 tablet 2x a day. Follow-up: Return to the emergency department as needed. Follow up with your doctor. Reason for referral: 1 - 2 days for wound check. Summary of care provided to patient via paper. Screening today revealed the patient's blood pressure to be in the normal range. The patient should follow up with a primary care provider for blood pressure management. Understanding of the discharge instructions verbalized by patient. (Electronically signed by Lanre Jung Dr. 06/03/2016 15:24)
--- NOTE | 2016-06-03 15:24 | ED MAR SUMMARY ---
..... Medication Administration Record [facility] [address] [place], [place] [id number] Patient: MARVA CARCAMO Visit ID: [id number] 20y, F Weight: 58.9 kg Height/Length: 66 in BMI: 21 ALLERGIES: No Known Drug Allergy
== END 2016-06-01 13:35 | disposition home or self-care (01) ==
LOC: ED SRH 13:07
DX: L02.414 Cutaneous abscess of left upper limb (principal)

== ENCOUNTER 2016-07-13 15:31 | Emergency (ER) | payer OTHER ==
--- NOTE | 2016-07-13 16:25 | ED CLINICAL REPORT ---
Clinical Report - Physicians/Mid Levels [facility] [address] [place] [address] 07/13/2016 15:31 Patient: MARVA CARCAMO Time Seen: 16:46 Jul 13 2016. Arrived- By private vehicle. Historian- patient. HISTORY OF PRESENT ILLNESS Chief Complaint: SORE THROAT. This started just prior to arrival and is still present. Pain described as mild. The patient has had a sore throat. (patient reports sore throat over the last 2 days, recent sick sibling diagnosed with strep pharyngitis, patient reports dry cough. Patient reports fevers at home, yesterday was taking Tylenol and Motrin. Patient denies sick contacts with exposure to mono. Denies arthralgia or abdominal pain.). REVIEW OF SYSTEMS No fever, cough, difficulty breathing, nausea or skin rash. All systems otherwise negative, except as recorded above. PAST HISTORY on Methadone. Problems: Wound Check. Lifestyle / Substance Problems. Abscess Check. Abscess. Fever. Cellulitis. Pneumonia. Febrile Illness. Ear Infection. Strep Throat. LNMP - Last Normal Menstrual Period. Abrasion(s). Tetanus Status. Immunizations. Additional Surgeries: I & D of Abcesses. Medications: None. Allergies: No Known Drug Allergy. ADDITIONAL NOTES The nursing notes have been reviewed. PHYSICAL EXAM Vital Signs: 07/13/2016 15:41 BP: 123/71. HR: 86. RR: 16. O2 saturation: 97%. Temp: 99.5 F. Pain level now: 5/10. Appearance: Alert. Head: Normal external inspection. Eyes: Conjunctivae and eyelids normal. ENT: Nose normal. Pharyngeal erythema. Lips normal. No trismus present. No peritonsillar mass, muffled or hoarse voice, drooling or dental decay or tenderness. Neck: Lymphadenopathy present. Thyroid normal. CVS: Normal heart rate and rhythm. Heart sounds normal. Rhythm normal. PMI not displaced laterally. Respiratory: No respiratory distress. Breath sounds normal. Neuro: Oriented X 3. LABS, X-RAYS, AND EKG Laboratory Tests: Culture, Strep Screen: (AINSLEY: 07/13/2016 16:00) ( MsgRcvd 07/13/2016 16:46) Final results Test Result Flag Units (Reference) RAPID STREP SCREEN - THROAT CALLED TO: You WILSON -- DATE: 07/13/16 POSITIVE SCREEN: RAPID STREP SCREEN: POSITIVE FOR GROUP A STREP . PROGRESS AND PROCEDURES Course of Care: Patient here in the ER was positive for group A rapid strep, with low-grade fever, subjective fevers at home. Patient stable. Patient with no uvula shift. Recent sick sibling with similar sx. Pt to f/u outpatient if no improvement in 3 days. Patient is stable. Physical exam findings are improved. Symptoms better. Patient/family counseled. Disposition: Discharged. CLINICAL IMPRESSION Pharyngitis INSTRUCTIONS Drink plenty of fluids. (warm salt water gargles). Warnings: Further evaluation is necessary. Prescription Medications: Amoxicillin 500 mg tablets: Take 1 orally every 8 hours for 10 days. Dispense thirty (30). No refills. OTC Medications: Take acetaminophen (Tylenol, Datril, etc.) and ibuprofen (Advil, Nuprin, etc.) according to label instructions. Available over the counter. Follow-up: Follow up with your doctor in three days if not better. (Electronically signed by Jaylin Ge P.A.-C 07/13/2016 16:49)
--- NOTE | 2016-07-13 16:25 | ED NURSING NOTES ---
Clinical Report - Nurses [facility] [address] [place] [address] 07/13/2016 15:31 Patient: MARVA CARCAMO TRIAGE Triage time 15:41 Jul 13 2016. Acuity: LEVEL 3. Chief Complaint: SORE THROAT. Alert. ALEXSANDRA COMA SCORE: [place] Coma Scale: 15- eyes open spontaneously (4); best verbal response- oriented x 4 (5); best motor response- obeys commands (6). --15:50 Salas Gudino R.N. 15:41 07/13/16. BP: 123/71. HR: 86. RR: 16. O2 saturation: 97% on room air. Temp: 99.5 F (oral). Pain level now: 5/10. --15:50 Salas Gudino R.N. Weight: 58.9 kg. Height/Length: 67 inches Per Patient. BMI: 20.4. Growth Chart Percentile: Weight: 52.8%. Height/Length: 85.2%. --15:42 Salas Gudino R.N. Medications None. --15:44 Salas Gudino R.N. Allergies No Known Drug Allergy. --15:44 Salas Gudino R.N. Medication/allergy information source: the patient. --15:50 Salas Gudino R.N. History Arrived by private vehicle. Historian: patient. Accompanied by family and mother. Primary physician (Iliana Zavala). ( Sore throat for the last two days associated with a fever, cough, and a [place]). Onset. (about 2 days ago). She has had hoarseness and fever. ( [place]). Treatment SIGN MAINTENANCE: None. PAST MEDICAL HX: Immunizations: status is unknown. Denies current . SOCIAL HX: Never smoker. No alcohol use or drug use. No infectious disease exposure. ABUSE ASSESSMENT: No report of abuse. FALL RISK ASSESSMENT: Fall risk assessment completed. No fall risk identified. NUTRITIONAL RISK ASSESSMENT: The nutritional risk assessment revealed no deficiencies. FUNCTIONAL ASSESSMENT: Functional assessment: no impairments noted. LEARNING NEEDS ASSESSMENT: The learning needs assessment revealed no barriers. SKIN INTEGRITY ASSESSMENT: Skin integrity risk assessment completed. No skin integrity risk identified. --15:50 Salas Gudino R.N. PROBLEMS: Wound Check. Lifestyle / Substance Problems. Abscess Check. Abscess. Fever. Cellulitis. Pneumonia. Febrile Illness. Ear Infection. Strep Throat. LNMP - Last Normal Menstrual Period. Abrasion(s). Tetanus Status. Immunizations. --15:45 Salas Gudino R.N. ADDITIONAL SURGERIES: I & D of Abcesses. --15:45 Salas Gudino R.N. Interventions ID band on patient. To treatment room. --15:50 Salas Gudino R.N. PHYSICAL ASSESSMENT Ambulatory to room. GENERAL / NEURO / PSYCH: Alert. Oriented X 4. HEENT: No dental injury noted. Mucous membranes are pink. RESPIRATORY: Respirations not labored. CVS: Capillary refill less than 2 seconds. SKIN: Skin is warm and dry. Normal skin turgor. --15:50 Salas Gudino R.N. NURSING PROGRESS NOTES Reassurance given to the patient and parent(s). Patient identifiers checked. Call light placed in reach. Side rails up x 1. Bed placed in lowest position. Brakes of bed on. Patient ready for evaluation- chart flagged and ED physician notified. --15:50 Salas Gudino R.N. 16:15 07/13/16. Checked patient name, birthdate and medical record number: family confirmed. Throat swab obtained for rapid strep; labeled in the presence of the patient and sent to lab. --16:34 Salas Gudino R.N. 16:28 07/13/2016 Amoxicillin PO Capsules 500 mg given. Allergies verified and confirmed 5 rights. --16:33 Salas Gudino R.N. 16:30 07/13/2016 Dexamemthason * PO 8 mg --16:32 Salas Gudino R.N. Critical value relayed to ED by flora mendez. Critical value received by Cynthia HAMILTON. group A strep positive. Critical value read back. Verified lab result. Checked patient name and birthdate. (read back and verified). PA notifed of critical value. Orders were not received. PA notified. Notified that diagnostic test is done (16:47 Mar 26 2017 resulted). --16:48 Cynthia Larkin R.N. DISPOSITION / DISCHARGE 16:45 07/13/16. BP: 108/57. HR: 86. RR: 16. O2 saturation: 99% on room air. Temp: 99 F. Pain level now: 09/27. --17:49 Salas Gudino R.N. Departure time: 1650. --17:49 Salas Gudino R.N. 16:50. Condition at departure: improved. No learning barriers present. Discharge instructions provided and reviewed with the patient. Reviewed medication(s) (prescription given to pt). Reviewed referral to family practice for followup. Patient and parent verbalized understanding. Written instructions provided in Syriac. The patient was discharged by the physician. She was discharged home and accompanied by parent. She left the Emergency Department ambulatory and via private vehicle. Parent driving. --17:52 Salas Gudino R.N. Locked/Released at 07/13/2016 17:54 by Salas Gudino R.N.
--- NOTE | 2016-07-13 16:25 | ED CLINICAL REPORT ---
Clinical Report - Physicians/Mid Levels [facility] [address] [place] [address] 07/13/2016 15:31 Patient: MARVA CARCAMO Time Seen: 16:46 Jul 13 2016. Arrived- By private vehicle. Historian- patient. HISTORY OF PRESENT ILLNESS Chief Complaint: SORE THROAT. This started just prior to arrival and is still present. Pain described as mild. The patient has had a sore throat. (patient reports sore throat over the last 2 days, recent sick sibling diagnosed with strep pharyngitis, patient reports dry cough. Patient reports fevers at home, yesterday was taking Tylenol and Motrin. Patient denies sick contacts with exposure to mono. Denies arthralgia or abdominal pain.). REVIEW OF SYSTEMS No fever, cough, difficulty breathing, nausea or skin rash. All systems otherwise negative, except as recorded above. PAST HISTORY on Methadone. Problems: Wound Check. Lifestyle / Substance Problems. Abscess Check. Abscess. Fever. Cellulitis. Pneumonia. Febrile Illness. Ear Infection. Strep Throat. LNMP - Last Normal Menstrual Period. Abrasion(s). Tetanus Status. Immunizations. Additional Surgeries: I & D of Abcesses. Medications: None. Allergies: No Known Drug Allergy. ADDITIONAL NOTES The nursing notes have been reviewed. PHYSICAL EXAM Vital Signs: 07/13/2016 15:41 BP: 123/71. HR: 86. RR: 16. O2 saturation: 97%. Temp: 99.5 F. Pain level now: 5/10. Appearance: Alert. Head: Normal external inspection. Eyes: Conjunctivae and eyelids normal. ENT: Nose normal. Pharyngeal erythema. Lips normal. No trismus present. No peritonsillar mass, muffled or hoarse voice, drooling or dental decay or tenderness. Neck: Lymphadenopathy present. Thyroid normal. CVS: Normal heart rate and rhythm. Heart sounds normal. Rhythm normal. PMI not displaced laterally. Respiratory: No respiratory distress. Breath sounds normal. Neuro: Oriented X 3. LABS, X-RAYS, AND EKG Laboratory Tests: Culture, Strep Screen: (AINSLEY: 07/13/2016 16:00) ( MsgRcvd 07/13/2016 16:46) Final results Test Result Flag Units (Reference) RAPID STREP SCREEN - THROAT CALLED TO: You WILSON -- DATE: 07/13/16 POSITIVE SCREEN: RAPID STREP SCREEN: POSITIVE FOR GROUP A STREP . PROGRESS AND PROCEDURES Course of Care: Patient here in the ER was positive for group A rapid strep, with low-grade fever, subjective fevers at home. Patient stable. Patient with no uvula shift. Recent sick sibling with similar sx. Pt to f/u outpatient if no improvement in 3 days. Patient is stable. Physical exam findings are improved. Symptoms better. Patient/family counseled. Disposition: Discharged. CLINICAL IMPRESSION Pharyngitis INSTRUCTIONS Drink plenty of fluids. (warm salt water gargles). Warnings: Further evaluation is necessary. Prescription Medications: Amoxicillin 500 mg tablets: Take 1 orally every 8 hours for 10 days. Dispense thirty (30). No refills. OTC Medications: Take acetaminophen (Tylenol, Datril, etc.) and ibuprofen (Advil, Nuprin, etc.) according to label instructions. Available over the counter. Follow-up: Follow up with your doctor in three days if not better. (Electronically signed by Jaylin Ge P.A.-C 07/13/2016 16:49)
--- NOTE | 2016-07-13 16:25 | ED ORDER SUMMARY ---
..... Patient: MARVA CARCAMO OrderSheet [facility] VisitID: [id number] [address] [place] [address] 20y, F Registration Date/Time: 07/13/2016 ORDER SHEET Weight: 58.9 kg Allergies: No Known Drug Allergy GENERAL ORDERS: Culture, Strep Screen Urgent (16:24 07/13/2016 EKsemaj P.A.-C) (16:26 Vipul R.N.) MEDICATION ORDERS: Dexamethasone PO 8mg (NOW) (16:09 07/13/2016 Linsey P.A.-C) (16:32 Vipul R.N.) Amoxicillin PO 500 mg (NOW) (16:09 07/13/2016 Linsey P.A.-C) (16:33 Vipul R.N.) IV FLUIDS: ORDER SHEET NOTES: [Electronically signed by Jaylin Ge-Yolanda (16:49 07/13/2016)] [Electronically signed by Salas Gudino R.N. (17:54 07/13/2016)] [Electronically locked/signed by Salas Gudino R.N. (17:54 07/13/2016)]
--- NOTE | 2016-07-13 16:25 | ED ORDER SUMMARY ---
..... Patient: MARVA CARCAMO OrderSheet [facility] VisitID: [id number] [address] [place] [address] 20y, F Registration Date/Time: 07/13/2016 ORDER SHEET Weight: 58.9 kg Allergies: No Known Drug Allergy GENERAL ORDERS: Culture, Strep Screen Urgent (16:24 07/13/2016 EKsemaj P.A.-C) (16:26 Vipul R.N.) MEDICATION ORDERS: Dexamethasone PO 8mg (NOW) (16:09 07/13/2016 Linsey P.A.-C) (16:32 Vipul R.N.) Amoxicillin PO 500 mg (NOW) (16:09 07/13/2016 Linsey P.A.-C) (16:33 Vipul R.N.) IV FLUIDS: ORDER SHEET NOTES: [Electronically signed by Jaylin Ge-Yolanda (16:49 07/13/2016)] [Electronically signed by Salas Gudino R.N. (17:54 07/13/2016)] [Electronically locked/signed by Salas Gudino R.N. (17:54 07/13/2016)]
--- NOTE | 2016-07-13 17:54 | ED MAR SUMMARY ---
..... Medication Administration Record [facility] [address] [place] [address] Patient: MARVA CARCAMO Visit ID: [id number] 20y, F Weight: 58.9 kg Height/Length: 67 in BMI: 20.4 ALLERGIES: No Known Drug Allergy Given 16:28 07/13/2016 Salas Gudino, RChelaN. Medication Administered: AMOXICILLIN [PO], Dose: 500 mg Capsules PO. Medication Ordered: Amoxicillin PO 500 mg (NOW). Given 16:30 07/13/2016 Salas Gudino, R.N. Medication Administered: Dexamemthason *, Dose: 8 mg * PO. Medication Ordered: Dexamethasone PO 8mg (NOW).
--- NOTE | 2016-07-13 17:54 | ED MED RECONCILIATION SUMMARY ---
Patient: MARVA CARCAMO Medication Reconciliation Report [facility] VisitID: [id number] [place] [address] 20y, F Registration Date/Time: 07/13/2016 Weight: 58.9 kg Height/Length: 67 in. BMI: 20.4 ALLERGIES: No Known Drug Allergy The patient's Home Medications are listed below: NONE. The source(s) of the original Home Medication information: patient The following Medications were given to the patient in the Emergency Department: Dexamemthason PO 8 mg, administered: 07/13/2016 4:30:00 PM Amoxicillin [PO] PO 500 mg, administered: 07/13/2016 4:28:00 PM The following Medications were prescribed to the patient: Take acetaminophen (Tylenol, Datril, etc.) and ibuprofen (Advil, Nuprin, etc.) according to label instructions. Available over the counter. -- Jaylin Ge P.AChela-Yolanda Amoxicillin 500 mg tablets: Take 1 orally every 8 hours for 10 days. Dispense thirty (30). No refills. -- Jaylin Ge P.ADelroyC
--- NOTE | 2016-07-13 17:54 | ED MAR SUMMARY ---
..... Medication Administration Record [facility] [address] [place] [address] Patient: MARVA CARCAMO Visit ID: [id number] 20y, F Weight: 58.9 kg Height/Length: 67 in BMI: 20.4 ALLERGIES: No Known Drug Allergy Given 16:28 07/13/2016 Salas Gudino, RChelaN. Medication Administered: AMOXICILLIN [PO], Dose: 500 mg Capsules PO. Medication Ordered: Amoxicillin PO 500 mg (NOW). Given 16:30 07/13/2016 Salas Gudino, R.N. Medication Administered: Dexamemthason *, Dose: 8 mg * PO. Medication Ordered: Dexamethasone PO 8mg (NOW).
--- NOTE | 2016-07-13 17:54 | ED MED RECONCILIATION SUMMARY ---
Patient: MARVA CARCAMO Medication Reconciliation Report [facility] VisitID: [id number] [place] [address] 20y, F Registration Date/Time: 07/13/2016 Weight: 58.9 kg Height/Length: 67 in. BMI: 20.4 ALLERGIES: No Known Drug Allergy The patient's Home Medications are listed below: NONE. The source(s) of the original Home Medication information: patient The following Medications were given to the patient in the Emergency Department: Dexamemthason PO 8 mg, administered: 07/13/2016 4:30:00 PM Amoxicillin [PO] PO 500 mg, administered: 07/13/2016 4:28:00 PM The following Medications were prescribed to the patient: Take acetaminophen (Tylenol, Datril, etc.) and ibuprofen (Advil, Nuprin, etc.) according to label instructions. Available over the counter. -- Jaylin Ge P.AChela-Yolanda Amoxicillin 500 mg tablets: Take 1 orally every 8 hours for 10 days. Dispense thirty (30). No refills. -- Jaylin Ge P.ADelroyC
--- NOTE | 2016-07-13 17:54 | ED DISCHARGE INSTRUCTIONS ---
Patient: MARVA CARCAMO General Instructions [facility] VisitID: [id number] [place] [address] 20y, F Registration Date/Time: 07/13/2016 Pharyngitis INSTRUCTIONS Drink plenty of fluids. (warm salt water gargles). Warnings: Further evaluation is necessary. Prescription Medications: Amoxicillin 500 mg tablets: Take 1 orally every 8 hours for 10 days. Dispense thirty (30). No refills. OTC Medications: Take acetaminophen (Tylenol, Datril, etc.) and ibuprofen (Advil, Nuprin, etc.) according to label instructions. Available over the counter. Follow-up: Follow up with your doctor in three days if not better. ADDITIONAL INFORMATION Pharyngitis: Strep [Presumed] Your illness has the signs of a strep throat infection. Strep throat is a contagious illness. It is spread by coughing, kissing or by touching others after touching your mouth or nose. Symptoms include throat pain worse with swallowing, aching all over, headache and fever. You will be treated with an antibiotic, which should make you start to feel better within 1-2 days. Home Care: Rest at home and drink plenty of fluids to avoid dehydration. No school or work for the first two days on antibiotics. You will not be contagious after this time, and if you are feeling better, you can return to school or work. Take your antibiotics for a full 10 days, even if you feel better after the first few days of treatment. This is very important to prevent complications from the strep infection (such as heart or kidney disease). Children: Use acetaminophen (Tylenol) for fever, fussiness or discomfort. In infants over six months of age, you may use ibuprofen (Children's Motrin) instead of Tylenol. [NOTE: If your child has chronic liver or kidney disease or ever had a stomach ulcer or GI bleeding, talk with your doctor before using these medicines.] (Aspirin should never be used in anyone under 18 years of age who is ill with a fever. It may cause severe liver damage.) Adults: You may use acetaminophen (Tylenol) or ibuprofen (Motrin, Advil) to control pain or fever, unless another medicine was prescribed for this. [NOTE: If you have chronic liver or kidney disease or ever had a stomach ulcer or GI bleeding, talk with your doctor before using these medicines.] Throat lozenges or sprays (Chloraseptic and others) will reduce pain. Gargling with warm salt water will also reduce throat pain. Dissolve 1/2 teaspoon of salt in 1 glass of warm water. This is especially useful just before meals. Follow Up with your doctor or as directed by our staff if you are not improving over the next week. Get Prompt Medical Attention if any of the following occur: Fever over 100.5F (38.0C) oral, or over 101.5F (38.6C) rectal for more than three days New or worsening ear pain, sinus pain or headache Painful lumps in the back of your neck Unable to swallow liquids or open your mouth wide due to throat pain Trouble breathing or noisy breathing Muffled voice New rash You have been given the following additional information: Pharyngitis, Strep (Presumed) (Electronically signed by Jaylin Ge P.A.-C 07/13/2016 16:49)
== END 2016-07-13 16:50 | disposition home or self-care (01) ==
LOC: ED SRH 15:31
DX: J02.0 Streptococcal pharyngitis (principal)
CPT/HCPCS: 90154